=== PATIENT | female | born 1940 | race Caucasian/White ===

== ENCOUNTER 2017-03-31 18:37 | Observation (INO) | payer OTHER ==
[~2017-03-31] VITALS: Ht 152.4 cm; Wt 37.7 kg
[2017-03-31 19:50] LABS: CARBON DIOXIDE (BICARBONATE) 30.7 MEQ/L (20-31)
[2017-03-31 20:00] LABS: CHLORIDE 96 mEq/L (99-109); HEMATOCRIT 30.1 % (36.0-46.0); MCH 19.7 PG (29.0-34.0); MCHC 30.9 G/DL (30.0-36.0); MCV 63.9 FL (83-99); MEAN PLAT.VOLUME 8.8 uM^3 (9.5-12.4); PLATELET COUNT 583 K/uL (156-360); POTASSIUM 3.6 mEq/L (3.7-5.4); RBC DIS.WIDTH-CV 20.6 % (11.8-14.6); RBC DIS.WIDTH-SD 46.5 % (39-53); RED BLOOD COUNT 4.71 M/uL (3.80-5.20); SODIUM 131 mEq/L (136-147); WHITE BLOOD COUNT 15.7 K/uL (4.1-10.2)
[2017-03-31 20:02] LABS: GLUCOSE 82 mg/dL (70-99)
[2017-03-31 20:04] LABS: ANION GAP 10 MEQ/L (2-14)
[2017-03-31 20:06] LABS: GFR ESTIMATE (CALCULATED) > 59 mL/min/
[2017-03-31 20:07] LABS: UREA NITROGEN (BUN) 15 mg/dL (9-23)
[2017-03-31 20:12] LABS: TROP-I INTERPRETATION NEGATIVE; TROPONIN-I < 0.01 ng/mL (0.0-0.30)
[2017-03-31] MEDS ORDERED: TRAMADOL-ACETA1 EACH PO (21:46)
[2017-03-31] MEDS ORDERED: GABAPENTIN100 MG PO (21:46)
[2017-03-31] MEDS ORDERED: ATENOLOL100 MG PO (21:47)
[2017-03-31] MEDS ORDERED: PREDNISONE5 MG PO (21:47)
[2017-03-31] MEDS ORDERED: ANORO ELLIPTA1 EACH IH (21:48)
[2017-03-31] MEDS ORDERED: AZULFIDINE500 MG PO (21:48)
[2017-03-31] MEDS ORDERED: BLOOD PRESSURE MED (21:50)
[2017-03-31 23:46] VITALS: BP 176/81
[2017-04-01 02:27] VITALS: BP 182/81
[2017-04-01 06:20] LABS: EOSINOPHIL (%) 0 % (0-5); HEMATOCRIT 27.1 % (36.0-46.0); IMMATURE GRANULOCYTE (%) 1.5 % (0.0-0.7); IMMATURE GRANULOCYTE COUNT 0.4 K/uL; INSTRUMENT ABS NEUTROPHIL CT 22.3 K/uL; LYMPHOCYTE COUNT 0.4 K/uL (1.0-2.8); MCH 19.3 PG (29.0-34.0); MCHC 30.3 G/DL (30.0-36.0); MCV 63.8 FL (83-99); MEAN PLAT.VOLUME 9.1 uM^3 (9.5-12.4); MONOCYTE COUNT 0.2 K/uL (0-0.8); NEUTROPHIL (%) 95.7 % (45-76); NEUTROPHIL COUNT 22.3 K/uL (1.8-6.4); PLATELET COUNT 468 K/uL (156-360); RBC DIS.WIDTH-CV 20.6 % (11.8-14.6); RBC DIS.WIDTH-SD 46.6 % (39-53); RED BLOOD COUNT 4.25 M/uL (3.80-5.20); WHITE BLOOD COUNT 23.3 K/uL (4.1-10.2)
[2017-04-01 06:28] LABS: ALKALINE PHOSPHATASE 78 IU/L (3-129); ANION GAP 13 MEQ/L (2-14); CHLORIDE 95 MEQ/L (99-109); GFR ESTIMATE (CALCULATED) > 59 mL/min/; MAGNESIUM 1.5 mg/dl (1.3-2.7); SAMPLE HEMOLYSIS CHECK 0; SAMPLE ICTERIC CHECK 0; SAMPLE LIPEMIA CHECK 0; SODIUM 131 MEQ/L (136-147); TOTAL BILIRUBIN 0.2 MG/DL (0.0-1.0); UREA NITROGEN (BUN) 15 mg/dL (9-23)
[2017-04-01 06:31] LABS: GLUCOSE 220 mg/dL (70-99); POTASSIUM 4.4 MEQ/L (3.7-5.4)
[2017-04-01 07:22] VITALS: BP 151/82
[2017-04-01 11:28] VITALS: BP 178/93
[2017-04-01 11:52] LABS: HEMATOCRIT 27.2 % (36.0-46.0); MCV 63.8 FL (83-99)
[2017-04-01] MEDS ORDERED: ADVAIR HFA120 INHALA IH (12:19)
[2017-04-01] MEDS ORDERED: SPIRIVA1 INHALATI IH (12:19)
[2017-04-01] MEDS ORDERED: VENTOLIN HFA18 GM IH (12:19)
[2017-04-01] MEDS ORDERED: CEFTIN500 MG PO (12:19)
[2017-04-01] MEDS ORDERED: NICOTINE PATCH1 EAC1 TD (12:19)
[2017-04-01] MEDS ORDERED: ZITHROMAX500 MG PO (12:19)
[2017-04-01 12:29] VITALS: BP 165/80
== END 2017-04-01 16:31 | disposition home or self-care (01) ==
LOC: EME 18:37 → 5EAST 22:00 → EDOF 22:00 → 5EAST 22:00 → ENRESERV 22:05 → 5EAST 23:42 → ENPENDDIS 04-01 → 5EAST 04-01 12:11
PROVIDERS: Emergency Medicine; Hospitalist; Physician Assistant Medical
DX: J44.0 Chronic obstructive pulmonary disease with (acute) lower respiratory infection (principal); J44.1 Chronic obstructive pulmonary disease with (acute) exacerbation; J20.9 Acute bronchitis, unspecified; R09.02 Hypoxemia; I16.0 Hypertensive urgency; I10 Essential (primary) hypertension; R64 Cachexia; Z68.1 Body mass index [BMI] 19.9 or less, adult; R41.0 Disorientation, unspecified; D64.9 Anemia, unspecified; M06.9 Rheumatoid arthritis, unspecified; D69.6 Thrombocytopenia, unspecified; I25.10 Atherosclerotic heart disease of native coronary artery without angina pectoris; D72.829 Elevated white blood cell count, unspecified; Z86.718 Personal history of other venous thrombosis and embolism; F17.210 Nicotine dependence, cigarettes, uncomplicated; Z79.52 Long term (current) use of systemic steroids; M25.50 Pain in unspecified joint
CPT/HCPCS: 71020; 71275; 80048; 80053; 82803; 83605; 83735; 83880; 84484; 85014; 85018; 85025; 85027; 87040; 93005; 94640; 94640 76; 94799; 99202; 99281; 99285; G0378; J0360; J0456; J0696; J1100; J1644; J2930; J3480; J7050

== ENCOUNTER 2017-04-22 16:55 | Inpatient (IN) | payer OTHER ==
[~2017-04-22] VITALS: Ht 152.4 cm; Wt 30.2 kg
[~2017-04-22 16:55] MED LIST: ADVAIR HFA120 INHALA IH; ANORO ELLIPTA1 EACH IH; ATENOLOL100 MG PO; AZULFIDINE500 MG PO; BLOOD PRESSURE MED; CEFTIN500 MG PO; GABAPENTIN100 MG PO; NICOTINE PATCH1 EAC1 TD; PREDNISONE5 MG PO; SPIRIVA1 INHALATI IH; TRAMADOL-ACETA1 EACH PO; VENTOLIN HFA18 GM IH; ZITHROMAX500 MG PO
[2017-04-22 17:55] LABS: CHLORIDE 95 mEq/L (99-109); POTASSIUM 3.8 mEq/L (3.7-5.4); SODIUM 134 mEq/L (136-147)
[2017-04-22 17:57] LABS: BASOPHIL COUNT 0.1 K/uL (0-0.1); EOSINOPHIL (%) 0.6 % (0-5); EOSINOPHIL COUNT 0.1 K/uL (0-0.3); GLUCOSE 111 mg/dL (70-99); HEMATOCRIT 27.8 % (36.0-46.0); IMMATURE GRANULOCYTE (%) 0.5 % (0.0-0.7); IMMATURE GRANULOCYTE COUNT 0.1 K/uL; INSTRUMENT ABS NEUTROPHIL CT 12.8 K/uL; LYMPHOCYTE COUNT 1.4 K/uL (1.0-2.8); MCH 19.5 PG (29.0-34.0); MCHC 30.9 G/DL (30.0-36.0); MCV 63.2 FL (83-99); MEAN PLAT.VOLUME 8.5 uM^3 (9.5-12.4); MONOCYTE (%) 7.1 % (3-12); MONOCYTE COUNT 1.1 K/uL (0-0.8); NEUTROPHIL (%) 82.2 % (45-76); NEUTROPHIL COUNT 12.8 K/uL (1.8-6.4); PLATELET COUNT 515 K/uL (156-360); RBC DIS.WIDTH-CV 21.4 % (11.8-14.6); RBC DIS.WIDTH-SD 47.1 % (39-53); WHITE BLOOD COUNT 15.5 K/uL (4.1-10.2)
[2017-04-22 17:58] LABS: ANION GAP 15 MEQ/L (2-14)
[2017-04-22 18:00] LABS: GFR ESTIMATE (CALCULATED) > 59 mL/min/
[2017-04-22 18:01] LABS: UREA NITROGEN (BUN) 14 mg/dL (9-23)
[2017-04-22 18:05] LABS: TROP-I INTERPRETATION NEGATIVE; TROPONIN-I 0.02 ng/mL (0.0-0.30)
[2017-04-22 22:47] VITALS: BP 157/80
[2017-04-23 01:00] LABS: SPECIFIC GRAVITY 1.069 (1.000-1.030)
[2017-04-23 01:41] LABS: ADD MIUA? YES; BILIRUBIN NEGATIVE; BLOOD NEGATIVE; COLOR YELLOW ((YELLOW)); GLUCOSE (STRIP) NEGATIVE; KETONES NEGATIVE; LEUKOCYTES TRACE; NITRITE POSITIVE; PROTEIN (STRIP) 30; UROBILINOGEN 0.2 MG/DL (0.2-1.0)
[2017-04-23 01:48] LABS: BACTERIA NONE SEEN /HPF; EPITHELIAL CELLS 1+ /HPF; MUCUS TRACE /LPF; RED BLOOD CELLS 0-5 /HPF (0-5); UCUL ADDED? NO; WHITE BLOOD CELLS 0-5 /HPF (0-5)
[2017-04-23] MEDS ORDERED: ALENDRONATE SOD70 MG PO (01:52)
[2017-04-23] MEDS ORDERED: ANORO ELLIPTA1 EACH IH (01:52)
[2017-04-23] MEDS ORDERED: ATENOLOL100 MG PO (01:53)
[2017-04-23] MEDS ORDERED: FELODIPINE ER10 MG PO (01:55)
[2017-04-23] MEDS ORDERED: ATORVASTATIN CA20 MG PO (01:55)
[2017-04-23] MEDS ORDERED: GABAPENTIN100 MG PO (01:56)
[2017-04-23] MEDS ORDERED: LISINOPRIL2.5 MG PO (01:57)
[2017-04-23] MEDS ORDERED: PREDNISONE5 MG PO (01:58)
[2017-04-23 03:05] VITALS: BP 141/79; BP 148/77
[2017-04-23 06:28] LABS: HEMATOCRIT 23.5 % (36.0-46.0); MCH 19.8 PG (29.0-34.0); MCHC 31.1 G/DL (30.0-36.0); MCV 63.7 FL (83-99); MEAN PLAT.VOLUME 8.7 uM^3 (9.5-12.4); PLATELET COUNT 478 K/uL (156-360); RBC DIS.WIDTH-CV 21.6 % (11.8-14.6); RED BLOOD COUNT 3.69 M/uL (3.80-5.20); WHITE BLOOD COUNT 18.3 K/uL (4.1-10.2)
[2017-04-23 06:53] LABS: ALKALINE PHOSPHATASE 80 IU/L (3-129); CHLORIDE 101 MEQ/L (99-109); GFR ESTIMATE (CALCULATED) > 59 mL/min/; GLUCOSE 121 mg/dL (70-99); SAMPLE HEMOLYSIS CHECK 0; SODIUM 134 MEQ/L (136-147); TOTAL BILIRUBIN 0.2 MG/DL (0.0-1.0); UREA NITROGEN (BUN) 13 mg/dL (9-23)
[2017-04-23 06:54] LABS: ANION GAP 11 MEQ/L (2-14); SAMPLE ICTERIC CHECK 0; SAMPLE LIPEMIA CHECK 0
[2017-04-23 10:23] LABS: FERRITIN 18 NG/ML (10-291)
[2017-04-23 10:26] LABS: IRON < 10 MCG/DL (35-150)
[2017-04-23 13:48] LABS: INTERNAL CONTROL VALID? YES
[2017-04-23 19:00] VITALS: BP 122/68
[2017-04-24] VITALS: BP 114/58
[2017-04-24 06:45] VITALS: BP 140/72
[2017-04-24 07:15] LABS: HEMATOCRIT 24.7 % (36.0-46.0); MCH 19.2 PG (29.0-34.0); MCHC 30.4 G/DL (30.0-36.0); MCV 63.3 FL (83-99); PLATELET COUNT 512 K/uL (156-360); RBC DIS.WIDTH-SD 48.7 % (39-53); WHITE BLOOD COUNT 12.9 K/uL (4.1-10.2)
[2017-04-24 07:35] LABS: ANION GAP 11 MEQ/L (2-14); CHLORIDE 100 MEQ/L (99-109); GFR ESTIMATE (CALCULATED) > 59 mL/min/; GLUCOSE 104 mg/dL (70-99); POTASSIUM 4.1 MEQ/L (3.7-5.4); SAMPLE HEMOLYSIS CHECK 0; SAMPLE ICTERIC CHECK 0; SAMPLE LIPEMIA CHECK 0; SODIUM 135 MEQ/L (136-147); UREA NITROGEN (BUN) 14 mg/dL (9-23)
[2017-04-24 15:44] VITALS: BP 160/64
[2017-04-25 00:51] VITALS: BP 136/82
[2017-04-25 07:06] LABS: MCH 19.6 PG (29.0-34.0); MCHC 30.8 G/DL (30.0-36.0); MCV 63.7 FL (83-99); MEAN PLAT.VOLUME 8.9 uM^3 (9.5-12.4); NRBC (%) 0.2 /100 WBC (0-0); PLATELET COUNT 564 K/uL (156-360); RBC DIS.WIDTH-CV 22.4 % (11.8-14.6); RBC DIS.WIDTH-SD 49.6 % (39-53); RED BLOOD COUNT 3.77 M/uL (3.80-5.20); WHITE BLOOD COUNT 11.7 K/uL (4.1-10.2)
[2017-04-25 07:34] VITALS: BP 160/70
[2017-04-25 15:57] VITALS: BP 160/90
[2017-04-26 00:06] VITALS: BP 168/94
[2017-04-26 06:31] LABS: ANION GAP 10 MEQ/L (2-14); CHLORIDE 100 MEQ/L (99-109); GFR ESTIMATE (CALCULATED) > 59 mL/min/; GLUCOSE 83 mg/dL (70-99); MAGNESIUM 1.7 mg/dl (1.3-2.7); POTASSIUM 3.8 MEQ/L (3.7-5.4); SAMPLE HEMOLYSIS CHECK 0; SAMPLE ICTERIC CHECK 0; SAMPLE LIPEMIA CHECK 0; SODIUM 135 MEQ/L (136-147); UREA NITROGEN (BUN) 12 mg/dL (9-23)
[2017-04-26 06:34] LABS: HEMATOCRIT 26.5 % (36.0-46.0); MCH 19.3 PG (29.0-34.0); MCHC 30.6 G/DL (30.0-36.0); MCV 63.2 FL (83-99); MEAN PLAT.VOLUME 8.4 uM^3 (9.5-12.4); NRBC (%) 0.5 /100 WBC (0-0); PLATELET COUNT 605 K/uL (156-360); RBC DIS.WIDTH-CV 22.6 % (11.8-14.6); RED BLOOD COUNT 4.19 M/uL (3.80-5.20); WHITE BLOOD COUNT 10.1 K/uL (4.1-10.2)
[2017-04-26 07:10] VITALS: BP 168/72
[2017-04-26 15:35] VITALS: BP 166/98
[2017-04-27 00:08] VITALS: BP 178/65
[2017-04-27 07:33] VITALS: BP 158/78
[2017-04-27] MEDS ORDERED: NICOTINE PATCH1 EAC1 TD (09:27)
[2017-04-27] MEDS ORDERED: FERROUS SULFAT325 MG PO (09:28)
[2017-04-27] MEDS ORDERED: PANTOPRAZOLE SO40 MG PO (09:29)
[2017-04-27] MEDS ORDERED: PREDNISONE10 MG PO (09:32)
[2017-04-27 11:15] VITALS: BP 142/88
== END 2017-04-27 11:44 | DRG 191 ==
LOC: EME 16:55 → EDOF 18:19 → 2EAST 18:19 → ENRESERV 18:31 → 2EAST 22:16
PROVIDERS: Emergency Medicine; Hospitalist; Internal Medicine
DX: J44.1 Chronic obstructive pulmonary disease with (acute) exacerbation (principal); E87.1 Hypo-osmolality and hyponatremia; R64 Cachexia; Z68.1 Body mass index [BMI] 19.9 or less, adult; F33.9 Major depressive disorder, recurrent, unspecified; J20.9 Acute bronchitis, unspecified; J44.0 Chronic obstructive pulmonary disease with (acute) lower respiratory infection; R09.02 Hypoxemia; I15.8 Other secondary hypertension; F41.9 Anxiety disorder, unspecified; D50.9 Iron deficiency anemia, unspecified; E78.5 Hyperlipidemia, unspecified; M06.9 Rheumatoid arthritis, unspecified; F17.210 Nicotine dependence, cigarettes, uncomplicated; E86.0 Dehydration; M19.90 Unspecified osteoarthritis, unspecified site; R33.9 Retention of urine, unspecified; R35.0 Frequency of micturition; Z66 Do not resuscitate; F50.89 Other specified eating disorder; Z60.2 Problems related to living alone; I10 Essential (primary) hypertension; R06.89 Other abnormalities of breathing; T43.295A Adverse effect of other antidepressants, initial encounter; Z90.710 Acquired absence of both cervix and uterus; Z99.81 Dependence on supplemental oxygen; Z79.52 Long term (current) use of systemic steroids
CPT/HCPCS: 71010; 71275; 73110; 80048; 80053; 81003; 82272; 82607; 82728; 82746; 83540; 83605; 83735; 83880; 84466; 84484; 85025; 85027; 85379; 93005; 94640; 94640 76; 94799; 97530 GO; 97530 GP; 99202; 99281; 99285; J0696; J1644; J2405; J2765; J2930; J7030; J7050; J7512

== ENCOUNTER 2017-05-08 22:27 | Emergency (ER) | payer OTHER ==
[~2017-05-08] VITALS: Ht 152.4 cm; Wt 38.2 kg
[~2017-05-08 22:27] MED LIST changes: +ALENDRONATE SOD70 MG PO; +ATORVASTATIN CA20 MG PO; +FELODIPINE ER10 MG PO; +FERROUS SULFAT325 MG PO; +LISINOPRIL2.5 MG PO; +PANTOPRAZOLE SO40 MG PO; +PREDNISONE10 MG PO
[2017-05-08 23:19] LABS: CHLORIDE 100 mEq/L (99-109); POTASSIUM 4.3 mEq/L (3.7-5.4); SODIUM 136 mEq/L (136-147)
[2017-05-08 23:21] LABS: GLUCOSE 87 mg/dL (70-99)
[2017-05-08 23:22] LABS: ANION GAP 13 MEQ/L (2-14)
[2017-05-08 23:23] LABS: BASOPHIL COUNT 0.1 K/uL (0-0.1); EOSINOPHIL (%) 1.1 % (0-5); EOSINOPHIL COUNT 0.1 K/uL (0-0.3); HEMATOCRIT 30.2 % (36.0-46.0); IMMATURE GRANULOCYTE (%) 1.2 % (0.0-0.7); IMMATURE GRANULOCYTE COUNT 0.1 K/uL; INSTRUMENT ABS NEUTROPHIL CT 5.6 K/uL; LYMPHOCYTE COUNT 1.1 K/uL (1.0-2.8); MCH 21.2 PG (29.0-34.0); MCHC 30.8 G/DL (30.0-36.0); MCV 68.8 FL (83-99); MONOCYTE (%) 6.8 % (3-12); MONOCYTE COUNT 0.5 K/uL (0-0.8); NEUTROPHIL (%) 75.7 % (45-76); NEUTROPHIL COUNT 5.6 K/uL (1.8-6.4); RBC DIS.WIDTH-CV 29.1 % (11.8-14.6); RBC DIS.WIDTH-SD 69.3 % (39-53); RED BLOOD COUNT 4.39 M/uL (3.80-5.20); WHITE BLOOD COUNT 7.5 K/uL (4.1-10.2)
[2017-05-08 23:25] LABS: GFR ESTIMATE (CALCULATED) > 59 mL/min/
[2017-05-08 23:26] LABS: UREA NITROGEN (BUN) 24 mg/dL (9-23)
[2017-05-08 23:31] LABS: TROP-I INTERPRETATION NEGATIVE; TROPONIN-I 0.01 ng/mL (0.0-0.30)
[2017-05-09] MEDS ORDERED: AERONEB GO NEB1 EACH MC (01:26)
[2017-05-09] MEDS ORDERED: ALBUTEROL2.5 MG/3 M IH (01:26)
[2017-05-09 01:31] VITALS: BP 100/87
[2017-05-09 02:09] LABS: MEAN PLAT.VOLUME 9.2 uM^3 (9.5-12.4); PLAT.SUFFICIENCY ADEQUATE
[2017-05-09 02:52] LABS: PLATELET COUNT 332 K/uL (156-360)
== END 2017-05-09 01:38 | disposition home or self-care (01) ==
LOC: EME 22:27
PROVIDERS: Emergency Medicine
DX: J44.9 Chronic obstructive pulmonary disease, unspecified (principal); R06.02 Shortness of breath; I10 Essential (primary) hypertension; Z87.891 Personal history of nicotine dependence
CPT/HCPCS: 71020; 80048; 81003; 83880; 84484; 85025; 93005; 94640; 99281; 99284; J2930

== ENCOUNTER 2017-07-09 10:16 | Inpatient (IN) | payer OTHER ==
[~2017-07-09] VITALS: Ht 152.4 cm; Wt 41.0 kg
[~2017-07-09 10:16] MED LIST changes: +AERONEB GO NEB1 EACH MC; +ALBUTEROL2.5 MG/3 M IH; -LISINOPRIL2.5 MG PO; +TENORMIN50 MG PO; +ZESTRIL10 MG PO
[2017-07-09 11:31] LABS: BASOPHIL (%) 0.4 % (0-1); EOSINOPHIL (%) 0.2 % (0-5); HEMATOCRIT 26.1 % (36.0-46.0); HEMOGLOBIN 8.1 G/DL (11.9-15.5); IMMATURE GRANULOCYTE (%) 1.3 % (0.0-0.7); LYMPHOCYTE COUNT 1.1 K/uL (1.0-2.8); MCH 21.1 PG (29.0-34.0); MONOCYTE (%) 4.5 % (3-12); MONOCYTE COUNT 0.5 K/uL (0-0.8); NEUTROPHIL (%) 83.6 % (45-76); NEUTROPHIL COUNT 9.1 K/uL (1.8-6.4); NRBC (%) 0.2 /100 WBC (0-0); PLATELET COUNT 428 K/uL (156-360); RBC DIS.WIDTH-SD 58.6 % (39-53); RED BLOOD COUNT 3.84 M/uL (3.80-5.20); WHITE BLOOD COUNT 10.9 K/uL (4.1-10.2)
[2017-07-09 11:34] LABS: ALBUMIN 3.1 g/dL (3.2-4.8); CHLORIDE 103 mEq/L (99-109); SODIUM 137 mEq/L (136-147)
[2017-07-09 11:36] LABS: GLUCOSE 92 mg/dL (70-99); TOTAL PROTEIN 6.2 g/dL (6.4-8.3)
[2017-07-09 11:38] LABS: TOTAL BILIRUBIN 0.2 mg/dL (0.0-1.0)
[2017-07-09 11:40] LABS: ALKALINE PHOSPHATASE 78 IU/L (3-129); CREATININE 0.9 mg/dL (0.6-1.3); GFR ESTIMATE (CALCULATED) > 59 mL/min/
[2017-07-09 11:41] LABS: UREA NITROGEN (BUN) 27 mg/dL (9-23)
[2017-07-09 11:42] LABS: AST (GOT) 13 IU/L (2-34)
[2017-07-09 11:43] LABS: ALT (GPT) 11 IU/L (3-49)
[2017-07-09 11:47] LABS: TROP-I INTERPRETATION NEGATIVE; TROPONIN-I 0.03 ng/mL (0.0-0.30)
[2017-07-09] MEDS ORDERED: PREDNISONE5 MG PO (14:30)
[2017-07-09] MEDS ORDERED: ALBUTEROL2.5 MG/3 M IH (14:33)
[2017-07-09 16:40] VITALS: BP 152/68
[2017-07-09 19:36] LABS: TROP-I INTERPRETATION NEGATIVE; TROPONIN-I 0.03 ng/mL (0.0-0.30)
[2017-07-09 20:17] VITALS: BP 132/54
[2017-07-09 23:28] VITALS: BP 130/62
[2017-07-10 01:13] LABS: TROP-I INTERPRETATION NEGATIVE; TROPONIN-I 0.03 ng/mL (0.0-0.30)
[2017-07-10 03:10] VITALS: BP 168/80
[2017-07-10 06:20] LABS: HEMATOCRIT 24.5 % (36.0-46.0); HEMOGLOBIN 7.5 G/DL (11.9-15.5); MCH 21.1 PG (29.0-34.0); MCHC 30.6 G/DL (30.0-36.0); MCV 68.8 FL (83-99); NRBC (%) 0.2 /100 WBC (0-0); PLATELET COUNT 389 K/uL (156-360); RBC DIS.WIDTH-CV 23.6 % (11.8-14.6); RBC DIS.WIDTH-SD 58.8 % (39-53); RED BLOOD COUNT 3.56 M/uL (3.80-5.20); WHITE BLOOD COUNT 8.1 K/uL (4.1-10.2)
[2017-07-10 06:51] LABS: CHLORIDE 100 MEQ/L (99-109); POTASSIUM 3.8 MEQ/L (3.7-5.4); SODIUM 138 MEQ/L (136-147)
[2017-07-10 06:57] LABS: CREATININE 1.1 MG/DL (0.6-1.3); GFR ESTIMATE (CALCULATED) 51 mL/min/; GLUCOSE 71 mg/dL (70-99); UREA NITROGEN (BUN) 32 mg/dL (9-23)
[2017-07-10 08:27] VITALS: BP 175/79
[2017-07-10 12:43] LABS: HEMATOCRIT 24.7 % (36.0-46.0); HEMOGLOBIN 7.7 G/DL (11.9-15.5); MCV 69.2 FL (83-99)
[2017-07-10 13:08] VITALS: BP 119/66
[2017-07-10 15:12] VITALS: BP 126/60
[2017-07-10 20:30] VITALS: BP 122/65
[2017-07-10 23:58] VITALS: BP 132/62
[2017-07-11] VITALS (9 sets, daily range): BP systolic 122–162; BP diastolic 58–75
[2017-07-11 09:35] LABS: HEMATOCRIT 23.5 % (36.0-46.0); HEMOGLOBIN 7.3 G/DL (11.9-15.5); MCH 21.5 PG (29.0-34.0); MCHC 31.1 G/DL (30.0-36.0); MCV 69.3 FL (83-99); NRBC (%) 0.3 /100 WBC (0-0); PLATELET COUNT 389 K/uL (156-360); RBC DIS.WIDTH-CV 23.3 % (11.8-14.6); RBC DIS.WIDTH-SD 58.4 % (39-53); RED BLOOD COUNT 3.39 M/uL (3.80-5.20); WHITE BLOOD COUNT 7.2 K/uL (4.1-10.2)
[2017-07-11 10:48] LABS: CHLORIDE 95 MEQ/L (99-109); CREATININE 1.1 MG/DL (0.6-1.3); GFR ESTIMATE (CALCULATED) 51 mL/min/; GLUCOSE 254 mg/dL (70-99); POTASSIUM 3.4 MEQ/L (3.7-5.4); SODIUM 131 MEQ/L (136-147); UREA NITROGEN (BUN) 32 mg/dL (9-23)
[2017-07-11 15:39] LABS: STOOL OCCULT BLD 1ST SPECIMEN NEGATIVE
[2017-07-12 00:02] VITALS: BP 167/83
[2017-07-12 04:35] VITALS: BP 183/104
[2017-07-12 07:50] VITALS: BP 170/83
[2017-07-12 10:16] LABS: HEMATOCRIT 30.6 % (36.0-46.0); MCH 23.2 PG (29.0-34.0); MCV 72.5 FL (83-99); PLATELET COUNT 391 K/uL (156-360); RBC DIS.WIDTH-CV 23.6 % (11.8-14.6); RBC DIS.WIDTH-SD 61.1 % (39-53); WHITE BLOOD COUNT 10.7 K/uL (4.1-10.2)
[2017-07-12 10:20] LABS: HEMOGLOBIN 9.8 G/DL (11.9-15.5); RED BLOOD COUNT 4.22 M/uL (3.80-5.20)
[2017-07-12 10:57] LABS: CHLORIDE 97 MEQ/L (99-109); CREATININE 0.8 MG/DL (0.6-1.3); FERRITIN 34 NG/ML (10-291); GFR ESTIMATE (CALCULATED) > 59 mL/min/; IRON 21 MCG/DL (35-150); SODIUM 134 MEQ/L (136-147); TRANSFERRIN (TIBC) 257.8 mg/dL (215-380); TRANSFERRIN SATUR. 8 % (20-55); UREA NITROGEN (BUN) 22 mg/dL (9-23)
[2017-07-12 10:58] LABS: GLUCOSE 100 mg/dL (70-99); POTASSIUM 4.3 MEQ/L (3.7-5.4)
[2017-07-12 12:01] VITALS: BP 160/83
[2017-07-12 16:41] VITALS: BP 174/83
[2017-07-12 20:17] VITALS: BP 173/80
[2017-07-13 07:00] LABS: HEMATOCRIT 32.4 % (36.0-46.0); HEMOGLOBIN 10.3 G/DL (11.9-15.5); MCH 22.8 PG (29.0-34.0); MCHC 31.8 G/DL (30.0-36.0); MCV 71.7 FL (83-99); PLATELET COUNT 405 K/uL (156-360); RBC DIS.WIDTH-CV 23.7 % (11.8-14.6); RBC DIS.WIDTH-SD 61.1 % (39-53); RED BLOOD COUNT 4.52 M/uL (3.80-5.20)
[2017-07-13 07:24] VITALS: BP 157/70
[2017-07-13 11:10] VITALS: BP 138/73
[2017-07-13] MEDS ORDERED: GABAPENTIN100 MG PO (14:18)
[2017-07-13] MEDS ORDERED: ADVAIR HFA120 INHAL2 IH (14:19)
[2017-07-13] MEDS ORDERED: LISINOPRIL20 MG PO (14:19)
[2017-07-13] MEDS ORDERED: ONDANSETRON4 MG/2 ML IV (14:20)
[2017-07-13] MEDS ORDERED: PANTOPRAZOLE SO40 MG PO (14:20)
[2017-07-13] MEDS ORDERED: COLACE100 MG PO (14:23)
[2017-07-13] MEDS ORDERED: IRON325 M1 PO (14:24)
[2017-07-13] MEDS ORDERED: TRAMADOL HCL50 MG PO (14:24)
[2017-07-13] MEDS ORDERED: ACIDOPHILUS LA1 EACH PO (14:24)
[2017-07-13] MEDS ORDERED: PREDNISONE10 MG PO (14:24)
[2017-07-13] MEDS ORDERED: CEFDINIR300 MG PO (15:03)
[2017-07-13 15:05] VITALS: BP 129/66
== END 2017-07-13 18:57 | DRG 194 ==
LOC: EME 10:16 → 5SOUTH 13:26 → EDOF 13:26 → ENRESERV 13:28 → 5SOUTH 16:27
PROVIDERS: Emergency Medicine; Hospitalist; Internal Medicine; Physician Assistant Medical; Specialist
DX: J18.9 Pneumonia, unspecified organism (principal); J44.0 Chronic obstructive pulmonary disease with (acute) lower respiratory infection; J44.1 Chronic obstructive pulmonary disease with (acute) exacerbation; I16.0 Hypertensive urgency; I10 Essential (primary) hypertension; K31.819 Angiodysplasia of stomach and duodenum without bleeding; D50.9 Iron deficiency anemia, unspecified; R06.89 Other abnormalities of breathing; G62.9 Polyneuropathy, unspecified; M25.511 Pain in right shoulder; M25.512 Pain in left shoulder; S22.31XA Fracture of one rib, right side, initial encounter for closed fracture; R09.02 Hypoxemia; M06.9 Rheumatoid arthritis, unspecified; E78.5 Hyperlipidemia, unspecified; R33.8 Other retention of urine; F17.200 Nicotine dependence, unspecified, uncomplicated; Z79.52 Long term (current) use of systemic steroids; Z86.718 Personal history of other venous thrombosis and embolism; Z95.0 Presence of cardiac pacemaker; Z90.710 Acquired absence of both cervix and uterus
CPT/HCPCS: 71045; 71046; 71250; 73030; 80048; 80053; 82272; 82728; 83540; 83880; 84466; 84484; 85014; 85018; 85025; 85027; 86850; 86900; 86901; 86920; 87040; 88305; 93005; 93306; 94640; 94640 76; 94799; 97530 GP; 99202; 99281; 99285; J0360; J0456; J0696; J1650; J1940; J2250; J2270; J2405; J2930; J3010; J7512; P9016

== ENCOUNTER 2017-09-11 10:35 | Inpatient (IN) | payer OTHER ==
[~2017-09-11] VITALS: Ht 152.4 cm; Wt 41.0 kg
[~2017-09-11 10:35] MED LIST changes: +ACIDOPHILUS LA1 EACH PO; +ADVAIR HFA120 INHAL2 IH; +CEFDINIR300 MG PO; +COLACE100 MG PO; +IRON325 M1 PO; +LISINOPRIL20 MG PO; +ONDANSETRON4 MG/2 ML IV; +TRAMADOL HCL50 MG PO
[2017-09-11 11:21] LABS: HEMATOCRIT 31.7 % (36.0-46.0); HEMOGLOBIN 10.3 G/DL (11.9-15.5); MCH 24.7 PG (29.0-34.0); MCHC 32.5 G/DL (30.0-36.0); PLATELET COUNT 273 K/uL (156-360); RBC DIS.WIDTH-CV 23.6 % (11.8-14.6); RBC DIS.WIDTH-SD 64.1 % (39-53); RED BLOOD COUNT 4.17 M/uL (3.80-5.20); WHITE BLOOD COUNT 11.3 K/uL (4.1-10.2)
[2017-09-11 11:29] LABS: CHLORIDE 105 mEq/L (99-109); POTASSIUM 3.8 mEq/L (3.7-5.4); SODIUM 138 mEq/L (136-147)
[2017-09-11 11:31] LABS: GLUCOSE 65 mg/dL (70-99)
[2017-09-11 11:32] LABS: TOTAL PROTEIN 5.9 g/dL (6.4-8.3)
[2017-09-11 11:33] LABS: TOTAL BILIRUBIN 0.3 mg/dL (0.0-1.0)
[2017-09-11 11:35] LABS: ALKALINE PHOSPHATASE 104 IU/L (3-129); CREATININE 0.7 mg/dL (0.6-1.3); GFR ESTIMATE (CALCULATED) > 59 mL/min/
[2017-09-11 11:36] LABS: UREA NITROGEN (BUN) 19 mg/dL (9-23)
[2017-09-11 11:37] LABS: AST (GOT) 13 IU/L (2-34)
[2017-09-11 11:38] LABS: ALT (GPT) 12 IU/L (3-49)
[2017-09-11 11:55] LABS: ABS NEUTROPHIL COUNT 9.4; ANISOCYTOSIS 2+; BAND NEUTROPHILS 3.5 % (0-8.0); EOSINOPHIL ABS CT 0.2; EOSINOPHILS 1.7 % (0-5.0); LYMPHOCYTES 9.5 % (15.0-45.0); METAMYELOCYTES 2.6 %; MICROCYTOSIS 2+; MONOCYTES 1.7 % (0-9.0); MYELOCYTES 1.7 %; SEG.NEUTROPHILS 79.3 % (46.0-76.0)
[2017-09-11 13:09] LABS: APPEARANCE CLEAR ((CLEAR)); BILIRUBIN NEGATIVE; BLOOD NEGATIVE; COLOR STRAW ((YELLOW)); GLUCOSE (STRIP) NEGATIVE; KETONES NEGATIVE; LEUKOCYTES NEGATIVE; NITRITE NEGATIVE; PROTEIN (STRIP) NEGATIVE; SPECIFIC GRAVITY 1.009 (1.000-1.030); UCUL ADDED? NO; UROBILINOGEN 0.2 MG/DL (0.2-1.0)
[2017-09-11] MEDS ORDERED: IRON325 M1 PO (14:54)
[2017-09-11] MEDS ORDERED: NEURONTIN100 MG PO (14:55)
[2017-09-11] MEDS ORDERED: LO-DOSE ASPIRIN81 M2 PO (14:56)
[2017-09-11] MEDS ORDERED: ZESTRIL10 MG PO (14:56)
[2017-09-11] MEDS ORDERED: DELTASONE20 M1 PO (14:57)
[2017-09-11] MEDS ORDERED: ALEVE220 M2 PO (14:57)
[2017-09-11] MEDS ORDERED: ZANTAC150 MG PO (14:57)
[2017-09-11] MEDS ORDERED: ALEVE PM CAPLE1 EACH PO (14:57)
[2017-09-11] MEDS ORDERED: NORVASC10 MG PO (14:59)
[2017-09-11 19:43] VITALS: BP 156/72
[2017-09-12 00:28] VITALS: BP 150/70
[2017-09-12 03:35] VITALS: BP 162/79
[2017-09-12 05:57] LABS: CHLORIDE 99 MEQ/L (99-109); CREATININE 0.8 MG/DL (0.6-1.3); GFR ESTIMATE (CALCULATED) > 59 mL/min/; POTASSIUM 3.9 MEQ/L (3.7-5.4); SODIUM 133 MEQ/L (136-147); UREA NITROGEN (BUN) 16 mg/dL (9-23)
[2017-09-12 05:58] LABS: GLUCOSE 142 mg/dL (70-99)
[2017-09-12 08:27] VITALS: BP 158/81
[2017-09-12 09:18] LABS: HEMOGLOBIN 10.2 G/DL (11.9-15.5); MCH 24.3 PG (29.0-34.0); MCHC 31.9 G/DL (30.0-36.0); MCV 76.4 FL (83-99); PLATELET COUNT 293 K/uL (156-360); RBC DIS.WIDTH-CV 23.2 % (11.8-14.6); RED BLOOD COUNT 4.19 M/uL (3.80-5.20); WHITE BLOOD COUNT 10.1 K/uL (4.1-10.2)
[2017-09-12 09:35] LABS: CHLORIDE 99 MEQ/L (99-109); CREATININE 0.8 MG/DL (0.6-1.3); GFR ESTIMATE (CALCULATED) > 59 mL/min/; GLUCOSE 139 mg/dL (70-99); POTASSIUM 4.4 MEQ/L (3.7-5.4); SODIUM 134 MEQ/L (136-147); UREA NITROGEN (BUN) 18 mg/dL (9-23)
[2017-09-12 12:30] VITALS: BP 158/86
[2017-09-12 16:19] VITALS: BP 166/58
[2017-09-12 23:13] VITALS: BP 139/88
[2017-09-13 08:30] VITALS: BP 133/76
[2017-09-13 16:30] VITALS: BP 149/70
[2017-09-13 23:35] VITALS: BP 158/84
[2017-09-14 05:51] LABS: BASOPHIL (%) 0.4 % (0-1); EOSINOPHIL (%) 1.4 % (0-5); EOSINOPHIL COUNT 0.1 K/uL (0-0.3); IMMATURE GRANULOCYTE (%) 1.4 % (0.0-0.7); LYMPHOCYTE COUNT 1.1 K/uL (1.0-2.8); MCH 23.9 PG (29.0-34.0); MCHC 31.3 G/DL (30.0-36.0); MCV 76.6 FL (83-99); MONOCYTE (%) 6.9 % (3-12); MONOCYTE COUNT 0.5 K/uL (0-0.8); NEUTROPHIL (%) 74.9 % (45-76); NEUTROPHIL COUNT 5.5 K/uL (1.8-6.4); PLATELET COUNT 323 K/uL (156-360); RBC DIS.WIDTH-CV 23.1 % (11.8-14.6); RBC DIS.WIDTH-SD 63.2 % (39-53); RED BLOOD COUNT 4.18 M/uL (3.80-5.20); WHITE BLOOD COUNT 7.3 K/uL (4.1-10.2)
[2017-09-14 06:30] LABS: CHLORIDE 101 MEQ/L (99-109); CREATININE 0.8 MG/DL (0.6-1.3); GFR ESTIMATE (CALCULATED) > 59 mL/min/; POTASSIUM 3.6 MEQ/L (3.7-5.4); SODIUM 136 MEQ/L (136-147); UREA NITROGEN (BUN) 22 mg/dL (9-23)
[2017-09-14 06:38] LABS: GLUCOSE 79 mg/dL (70-99)
[2017-09-14 07:24] VITALS: BP 145/70
[2017-09-14 10:02] LABS: APPEARANCE CLOUDY ((CLEAR)); BILIRUBIN NEGATIVE; BLOOD NEGATIVE; COLOR AMBER ((YELLOW)); GLUCOSE (STRIP) NEGATIVE; KETONES NEGATIVE; LEUKOCYTES MODERATE; NITRITE NEGATIVE; PROTEIN (STRIP) 100; SPECIFIC GRAVITY 1.018 (1.000-1.030); UROBILINOGEN 0.2 MG/DL (0.2-1.0)
[2017-09-14 11:15] LABS: AMORPHOUS PHOSPHATE CRYSTALS 3+; BACTERIA 3+ /HPF; EPITHELIAL CELLS RARE /HPF; MUCUS NONE SEEN /LPF; RED BLOOD CELLS NONE SEEN /HPF (0-5); TRIPLE PHOSPHATE CRYSTALS 2+ /HPF; UCUL ADDED? YES; WHITE BLOOD CELLS RARE /HPF (0-5)
[2017-09-14 15:49] VITALS: BP 146/68
[2017-09-14 23:42] VITALS: BP 163/79
[2017-09-15 08:42] VITALS: BP 128/62
[2017-09-15 15:54] VITALS: BP 181/83
[2017-09-16 07:30] VITALS: BP 174/79
[2017-09-16] MEDS ORDERED: PREDNISONE20 MG PO (08:12)
[2017-09-16] MEDS ORDERED: DULERA 100 MCG/13 GM IH (08:12)
[2017-09-16] MEDS ORDERED: DUONEB 2.5-0.5 M3 ML AEROSOL (08:12)
== END 2017-09-16 14:54 | disposition home health service (06) | DRG 552 ==
LOC: EME 10:35 → ENRESERV 14:41 → 3EAST 14:43 → EDOF 14:43 → ENRESERV 16:06 → 3EAST 17:11
PROVIDERS: Emergency Medicine; Internal Medicine; Physician Assistant
DX: M47.816 Spondylosis without myelopathy or radiculopathy, lumbar region (principal); Z68.1 Body mass index [BMI] 19.9 or less, adult; M48.56XA Collapsed vertebra, not elsewhere classified, lumbar region, initial encounter for fracture; M48.54XA Collapsed vertebra, not elsewhere classified, thoracic region, initial encounter for fracture; F05 Delirium due to known physiological condition; J98.11 Atelectasis; G89.29 Other chronic pain; I10 Essential (primary) hypertension; M06.9 Rheumatoid arthritis, unspecified; J44.9 Chronic obstructive pulmonary disease, unspecified; R09.02 Hypoxemia; M85.48 Solitary bone cyst, other site; D63.8 Anemia in other chronic diseases classified elsewhere; G31.84 Mild cognitive impairment of uncertain or unknown etiology; M48.061 Spinal stenosis, lumbar region without neurogenic claudication; G96.8 Other specified disorders of central nervous system; R29.890 Loss of height; M51.36 Other intervertebral disc degeneration, lumbar region; Z87.891 Personal history of nicotine dependence; Z90.710 Acquired absence of both cervix and uterus; Z90.49 Acquired absence of other specified parts of digestive tract; Z86.718 Personal history of other venous thrombosis and embolism; Z79.51 Long term (current) use of inhaled steroids; Z79.52 Long term (current) use of systemic steroids; Z79.82 Long term (current) use of aspirin; Z99.81 Dependence on supplemental oxygen
CPT/HCPCS: 71046; 72148; 74176; 80048; 80048 91; 80053; 81003; 82948; 85025; 85027; 87086; 94640; 94640 76; 94799; 97530 GO; 99202; 99281; 99285; J0696; J1650; J2060; J2405; J7512